=== PATIENT | female | born 1980 | race American Indian/Alaskan Native ===

== ENCOUNTER 2018-02-16 07:48 | Inpatient (IN) | payer MEDICARE, OTHER ==
[2018-02-15 12:48] VITALS: BMI 45.8
[2018-02-16] MEDS ORDERED: Bupivacaine-Epi 0.5%-1:200,000 PF Inj IJ ONE (12:09)
[2018-02-16] MEDS ORDERED: ceFAZolin IV 2 gm in Dextrose 2 GM/50 ML BAG IVPB ONE (13:15)
[2018-02-16] MEDS ORDERED: Succinylcholine Chloride 20 mg/ml Syr (5 ml) IV ONE (13:20)
[2018-02-16] MEDS ORDERED: Propofol 10 mg/ml Inj (20 ML) ONE (13:20)
[2018-02-16] MEDS ORDERED: Midazolam 2 MG/2 ML VIAL ONE (13:21)
[2018-02-16] MEDS ORDERED: ePHEDrine 50 mg/ml Inj ONE (13:22)
[2018-02-16] MEDS ORDERED: Rocuronium 10 mg/ml (5 ml) ONE ×2 (13:23)
[2018-02-16] MEDS ORDERED: Labetalol 25mg/5ml Syringe ONE (14:18)
[2018-02-16] MEDS ORDERED: Neostigmine Methylsulfate 3mg/3ml Syringe IV ONE (15:10)
--- NOTE | 2018-02-16 15:31 | PCM.OP ---
Operative Report - Operative Report Date of Surgery/Procedure: 02/16/18 Time of Surgery/Procedure: 15:29 Surgeon: Celia Wright MD [place] Decorator: Mariah CAMPOS Anesthesia/Sedation: Get with ET tube Pre-Operative Diagnosis: Fibroid uterus. Abnormal uterine bleeding. Chronic pelvic pain. prolapse uterus Post-Operative Diagnosis: Fibroid uterus. Abnormal uterine bleeding. Chronic pelvic pain. prolapse uterus. morbid obesity Indication for Surgery: worsening symptomatic fibroid uterus Operative Findings: bulky myomatus uterus, possible adenomyosis, large complex right ovarian cyst Procedure/Operation Description: Total robotic hysterectomy bilateral salpingectomy >250guterosacroligament suspenssion, right ovarian cystectomy, diagnostic cystosscopy Estimated Blood Loss: 15 Blood Replaced: none Complications: none Specimen: uterus, cervix tubes bilateraly, right ovarian cyst
[2018-02-16] MEDS: HYDROmorphone 0.5 mg/0.5 ml ISec IVP PRN ×5 (15:41→16:42)
[2018-02-16] MEDS ORDERED: Sodium Chloride 0.9% 1,000 ML IV SCH (15:45)
[2018-02-16] MEDS ORDERED: Oxycodone/Acetaminophen 5/325 mg Tab PO PRN (15:53)
[2018-02-16] MEDS ORDERED: Lactated Ringer's 1,000 ML IV ONE (16:44)
[2018-02-17 00:18] VITALS: O2SAT 97
[2018-02-17 07:52] LABS: HEMOGLOBIN 10.3 g/dL (11.0-16.0); MEAN CELL VOLUME 79.6 fL (81.0-99.0); MEAN CORPUSCULAR HEMOGLOBIN 26.2 pg (27.0-31.0); MEAN CORPUSCULAR HGB CONC 32.8 g/dL (33.0-37.0); MEAN PLATELET VOLUME 8.2 fL (7.2-11.7); RBC 3.94 Mil/uL (3.80-5.20); RED CELL DISTRIBUTION WIDTH 16.9 % (11.5-14.5); WHITE BLOOD COUNT 11.7 K/uL (4.8-10.8)
[2018-02-17 08:20] LABS: BLOOD UREA NITROGEN 9 mg/dL (7-17); CALCIUM 8.2 mg/dl (8.6-10.4); GFR AFRICAN-AMERICAN > 60; GFR NON-AFRICAN AMERICAN > 60
[2018-02-17 12:24] VITALS: BP 130/86; PULSE 74; RESP 18; TEMP 98.4
--- NOTE | 2018-02-17 14:12 | CP.PCM.PN ---
Subjective - Date & Time of Evaluation Date of Evaluation: 02/17/18 Time of Evaluation: 14:10 - Subjective Subjective: Patient states she has a lot of pain in her abdomen. She asks to go to bathroom. Wtih encouragement, patient able to get up and walk to bathroom without assistance. Denies CP/SOB/dizziness. Patient ate lunch, says she is still hungry and asks for more food. Denies nausea/vomiting. Objective - Vital Signs/Intake and Output Vital Signs (last 24 hours): Temp Pulse Resp BP Pulse Ox 98.4 F 74 18 130/86 97 02/17/18 08:00 02/17/18 08:00 02/17/18 08:00 02/17/18 08:00 02/17/18 08:00 Intake and Output: 02/17/18 02/17/18 06:59 18:59 Intake Total 125 Balance 125 - Medications Medications: Current Medications Cefazolin Sodium 2 gm/ (Dextrose) 50 mls @ 100 mls/hr IVPB Q8H KAYLIE PRN Reason: Protocol Last Admin: 02/17/18 12:31 Dose: 100 mls/hr Sodium Chloride (Sodium Chloride 0.9%) 1,000 mls @ 100 mls/hr IV .Q10H [facility] Last Admin: 02/17/18 06:16 Dose: 100 mls/hr Morphine Sulfate (Morphine) 4 mg IVP Q4H PRN PRN Reason: Pain, severe (8-10) Ondansetron HCl (Zofran Inj) 4 mg IVP ONCE PRN PRN Reason: Nausea/Vomiting Oxycodone/Acetaminophen (Percocet 5/325 Mg Tab) 2 tab PO Q4 PRN PRN Reason: Pain, moderate (4-7) Stop: 02/19/18 15:54 Last Admin: 02/17/18 07:30 Dose: 2 tab - Labs Labs: 02/17/18 07:38 02/17/18 07:38 - GI/Abdominal Exam Additional comments: soft abd, mild distention, incisions intact, dry Assessment and Plan (1) Fibroid uterus Assessment & Plan: POD#1 s/p robotic hysterectomy -d/c home today after voids -rx percocet per Dr. Villa -encourage OOB, ambulation -colace while taking pain medication -call for bleeding/fever/increased pain and for f/u appt in weeks -d/w Dr. Villa, agrees with above Status: Acute (2) Chronic pelvic pain in female Status: Acute (3) Abnormal uterine bleeding Status: Acute (4) Prolapsed uterus Status: Acute (5) Morbid obesity Status: Acute
== END 2018-02-17 19:30 | disposition home or self-care (01) | DRG 743 ==
LOC: C.SDS 07:48 → C.9S 15:33 → C.4M 16:07
PROVIDERS: ADMIT Obstetrics & Gynecology; ATTEND Obstetrics & Gynecology
PROC: 0UT74ZZ Resection of Bilateral Fallopian Tubes, Percutaneous Endoscopic Approach (ICD-10-PCS; 2018-02-16)
PROC: 0UB04ZZ Excision of Right Ovary, Percutaneous Endoscopic Approach (ICD-10-PCS; 2018-02-16)
PROC: 0USG4ZZ Reposition Vagina, Percutaneous Endoscopic Approach (ICD-10-PCS; 2018-02-16)
PROC: 8E0W4CZ Robotic Assisted Procedure of Trunk Region, Percutaneous Endoscopic Approach (ICD-10-PCS; 2018-02-16)
PROC: 0UT94ZZ Resection of Uterus, Percutaneous Endoscopic Approach (ICD-10-PCS; principal; 2018-02-16 13:12)
DX: D25.9 Leiomyoma of uterus, unspecified (principal); N81.4 Uterovaginal prolapse, unspecified; N83.01 Follicular cyst of right ovary; N80.0 Endometriosis of uterus; N93.9 Abnormal uterine and vaginal bleeding, unspecified; R10.2 Pelvic and perineal pain; E66.01 Morbid (severe) obesity due to excess calories